=== PATIENT | male | born 1970 | race Caucasian/White ===

== ENCOUNTER → 2018-08-13 | Outpatient (REF) ==
[~2018-08-13] MED LIST: HUMALOG100 U/ML SC; LANTUS100 U/ML SC; LEVOTHYROXINE; LISINOPRIL
[2018-08-13 16:45] LABS: PSA-TOTAL 0.35 ng/mL (0-4)
[2018-08-13 16:51] LABS: THYROID STIMULATING HORMONE 18.5 uIU/mL (0.465-4.680)
== END ==
LOC: ZLAB.WCH 15:54
PROVIDERS: Internal Medicine
DX: Z01.89 Encounter for other specified special examinations (principal)
CPT/HCPCS: G0103

== ENCOUNTER → 2018-10-01 | Outpatient (REF) ==
[2018-10-01 09:59] LABS: PSA-TOTAL 0.36 ng/mL (0-4)
[2018-10-01 10:39] LABS: THYROID STIMULATING HORMONE 3.01 uIU/mL (0.465-4.680)
== END ==
LOC: ZLAB.WCH 09:18
PROVIDERS: Internal Medicine
DX: Z01.89 Encounter for other specified special examinations (principal)
CPT/HCPCS: G0103

== ENCOUNTER 2019-08-12 17:49 | Emergency (ER) | payer OTHER ==
[~2019-08-12] VITALS: Ht 182.9 cm; Wt 115.0 kg
[2019-08-12 18:03] VITALS: BP 181/102; TEMP 97.7
[2019-08-12 19:24] VITALS: PULSE 74
== END 2019-08-12 19:28 | disposition home or self-care (01) ==
LOC: COL.ER 17:49
DX: S59.901A Unspecified injury of right elbow, initial encounter (principal); M25.521 Pain in right elbow; E03.9 Hypothyroidism, unspecified; I10 Essential (primary) hypertension; E11.9 Type 2 diabetes mellitus without complications; Z79.4 Long term (current) use of insulin; X50.1XXA Overexertion from prolonged static or awkward postures, initial encounter